=== PATIENT | male | born 1945 | race Caucasian/White ===

== ENCOUNTER → 2019-06-05 | Outpatient (CLI) | payer MEDICARE ==
--- NOTE | 2019-06-05 17:05 | PCVCIMAG ---
APPROVED REPORT Study performed: 06/05/2019 14:00:45 Exam: Stress Echocardiogram Indication: Palpitations , Dyspnea Patient Location: Echo lab Stress Nurse: Whitney Prado RN Room #: 2 Status: routine Ht: 4 ft 11 in HR: 96 bpm BP: 122/74 mmHg Rhythm: NSR Medical History Medical History: Diabetes, HTN, Hyperlipidemia Cardiac Risk Factors: HTN, Hyperlipidemia, DM Previous Cardiac Procedures: none Exercise History: Sedentary Procedure The patient underwent an Exercise Stress Test using the Osvaldo Protocol. Blood pressure, heart rate, and EKG were monitored. An Echocardiogram was performed by set up technician in four stages in quad fashion. At peak stress, four selected images were obtained and placed side by side with resting images for comparison. Stress Test Details Stress Test: Exercise stress testing was performed using a Osvaldo protocol. HR Resting HR: 96 bpmMax Heart Rate (APMHR): 148 bpm Max HR Achieved: 155 bpmTarget HR (85% APMHR): 125 bpm % of APMHR: 104 Recovery HR: 107 bpm HR response to stress: Normal HR response to stress BP Resting BP: 122/74 mmHg Max BP: 150/70 mmHg Recovery BP: 116/74 mmHg BP response to stress: Normal blood pressure response to stress. ECG Resting ECG: Sinus Rhythm Stress ECG: Sinus Rhythm ST Change: Non-ischemic Maximum ST Deviation: -0.50 mm Arrhythmia: Rare PAC Recovery ECG: Sinus Rhythm Recovery ST Change: Non-ischemic Recovery ST Deviation: -0.30 mm Recovery Arrhythmia: None Clinical Reason for Termination: Maximal effort Stress Symptoms: fatigue Exercise duration: 6 min 20 sec Highest Stage Achieved: Stage 3: 3.4 mph at 14% grade. Exercise capacity: 8.0 METs Overall Exercise Capacity for Age: Average Angina Score: None No complications. Stress ECG Conclusion The patient exercised according to the OSVALDO protocol for 6:20 mins; achieving a work level of 8.0 METS. The resting heart rate of 96 bpm herminio to a maximum heart rate of 155 bpm. This value represents 104 % of the maximal, age-predicted heart rate. The resting blood pressure of 122/74 mmHg, herminio to a maximum blood pressure of 150/70 mmHg. The exercise test was stopped due to fatigue . Leonard Treadmill Score is 8.5 which is Low risk. Pre-Stress Echo The resting Echocardiogram showed normal left ventricular contractility with an estimated Ejection Fraction of about 55-60%. Normal wall motion in all segments on baseline images. Post-Stress Echo The stress Echocardiogram showed normal left ventricular contractility with an estimated Ejection Fraction of about 65-70%. Normal augmentation of wall motion in all segments on post stress images. Clinical No clinical or ECG evidence for ischemia. Conclusion Clinical Response: Non-ischemic Exercise Capacity: Below Average Stress ECG Response: Non-ischemic Stress Echo Images: Non-ischemic No clinical, EKG or echocardiographic evidence for ischemia. No echocardiographic evidence for exercise induced ischemia. Normal stress echocardiogram with maximal exercise stress. Normal color doppler. No regurgitation or stenosis present on pulmonic, mitral, or aortic valves.Mild tricuspid regurgitation with a PA pressurwe of 30 mmHg. Borderline pulmonary hypertension. No prior study available for comparison. <Conclusion> No clinical, EKG or echocardiographic evidence for ischemia. No echocardiographic evidence for exercise induced ischemia. Normal stress echocardiogram with maximal exercise stress. Normal color doppler. No regurgitation or stenosis present on pulmonic, mitral, or aortic valves.Mild tricuspid regurgitation with a PA pressurwe of 30 mmHg. Borderline pulmonary hypertension.
== END | disposition home or self-care (01) ==
LOC: PCVCIMAG 13:34
PROVIDERS: ATTEND Internal Medicine Cardiovascular Disease
DX: I07.1 Rheumatic tricuspid insufficiency (principal)
CPT/HCPCS: 93325; 93351